=== PATIENT | female | born 1970 | race African-American/Black ===

== ENCOUNTER 2018-09-04 16:29 | Emergency (ER) | payer SELFPAY ==
[~2018-09-04] VITALS: Ht 149.9 cm; Wt 76.7 kg
[2018-09-04 16:35] VITALS: BP 143/81
[2018-09-04] MEDS ORDERED: SULF1TAB24 PO (16:48)
--- NOTE | 2018-09-04 16:49 | PHYS DOC ---
Past Medical History Past Medical History: No Pertinent History (VLAD JONES APRN) Past Surgical History: Hysterectomy (VLAD JONES APRN) Additional Information: 6 cigarettes daily Alcohol Use: Occasionally Drug Use: None (VLAD JONES APRN) Adult General Chief Complaint Chief Complaint: INSECT BITE HPI HPI Patient is a 48 year old female who presents to the ED today complaining of an insect bite to the left medial ankle that she noted today. Patient states she believes she got bit by a spider. She states she felt something bite her but did not see what exactly bit her. She states the last time she had a similar bite she had to be on antibiotics and is requesting the same. Denies any anaphylactic-type reaction symptoms. (VLAD JONES APRN) Review of Systems Review of Systems Constitutional: Denies fever or chills [] Musculoskeletal: Denies back pain or joint pain [] Integument: Insect bite to the left medial ankle Neurologic: Denies headache, focal weakness or sensory changes [] All other systems were reviewed and found to be within normal limits, except as documented in this note. (VLAD JONES APRN) Physical Exam Physical Exam Constitutional: Well developed, well nourished, no acute distress, non-toxic appearance. [] Skin: Left medial ankle with 3 elevated areas consistent of an insect bite. There is surrounding approximately 2 cm of cellulitis to this area. There is no fluctuance to this area. There is warmth or tenderness to the area. Full range of motion to the left ankle and foot. +2 left pedal pulse. Neurovascular exam is intact to the left Back: No tenderness, no CVA tenderness. [] Extremities: No tenderness, no cyanosis, no clubbing, ROM intact, no edema. [] Neurologic: Alert and oriented X 3, normal motor function, normal sensory function, no focal deficits noted. [] Psychologic: Affect normal, judgement normal, mood normal. [] (VLAD JONES APRN) Current Patient Data Vital Signs Vital Signs Date Time Temp Pulse Resp B/P (MAP) Pulse Ox O2 Delivery O2 Flow Rate FiO2 09/04/18 16:35 98.5 105 20 143/81 (101) 96 Room Air 98.5 (LIBBY HUGGINS MD) EKG EKG [] (VLAD JONES APRN) Radiology/Procedures Radiology/Procedures [] (VLAD JONES APRN) Course & Med Decision Making Course & Med Decision Making Pertinent Labs and Imaging studies reviewed. (See chart for details) Patient is in the ED with insect bite to the left medial ankle. She believes it' s a spider bite. She states the last time she had to on antibiotics when she got bit by a spider D/c on Bactrim. Tetanus up-to-date. Encouraged her to take Benadryl as needed. Follow-up with primary care doctor in 1-2 weeks. Provided return precautions and discharged in stable condition. (VLAD JONES APRN) Course & Med Decision Making Staff Physician Addendum: I was working in the ER during the course of this patient's visit. I was available for consultation as needed, but I was not directly involved in the care of this patient. (LIBBY HUGGINS MD) Dragon Disclaimer Dragon Disclaimer This electronic medical record was generated, in whole or in part, using a voice recognition dictation system. (VLAD JONES APRN) Departure Departure Impression: Primary Impression: Insect bite of left lower extremity Disposition: HOME, SELF-CARE Condition: STABLE Patient Instructions: Insect Bite, [id number] Additional Instructions: You were evaluated in the emergency department for an insect bite to the left medial ankle. Keep the area clean and dry. Take the prescribed antibiotics until completed. Please take Benadryl as needed for this bite. Follow-up with your doctor in 1-2 weeks. Come back to the ED if symptoms worsen. Scripts Sulfamethoxazole/Trimethoprim (BACTRIM DS TABLET) 1 Each Tablet 1 TAB PO BID, #20 TAB Prov: VLAD JONES APRN 09/04/18 Problem Qualifiers Primary Impression: Insect bite of left lower extremity Encounter type: initial encounter Qualified Codes: S80.862A - Insect bite ( nonvenomous), left lower leg, initial encounter; W57.XXXA - Bitten or stung by nonvenomous insect and other nonvenomous arthropods, initial encounter VLAD JONES APRN Sep 04, 2018 16:49 LIBBY HUGGINS MD Sep 06, 2018 04:06
== END 2018-09-04 17:03 | disposition home or self-care (01) ==
LOC: ER 16:29
DX: S80.862A Insect bite (nonvenomous), left lower leg, initial encounter (principal); L03.116 Cellulitis of left lower limb; F17.210 Nicotine dependence, cigarettes, uncomplicated; Z90.710 Acquired absence of both cervix and uterus; W57.XXXA Bitten or stung by nonvenomous insect and other nonvenomous arthropods, initial encounter; Y93.89 Activity, other specified; Y92.89 Other specified places as the place of occurrence of the external cause; Y99.8 Other external cause status
CPT/HCPCS: 99283

== ENCOUNTER 2019-01-22 16:25 | Emergency (ER) | payer SELFPAY ==
[~2019-01-22] VITALS: Ht 149.9 cm; Wt 65.8 kg
[~2019-01-22 16:25] MED LIST: SULF1TAB24 PO
[2019-01-22 17:05] VITALS: BP 136/84
[2019-01-22] MEDS ORDERED: FLUORESCEIN OPHTH TEST STRIP. OS ONE (17:15)
[2019-01-22] MEDS ORDERED: TETRACAINE 0.5% OPHTH SOLUTION 4ML BOTTLE. OS ONE (17:15)
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
[2019-01-22] MEDS ORDERED: HYDROcodone/APAP 5/325MG 1 TAB TABLET PO ONE (17:45)
[2019-01-22] MEDS ORDERED: HYDR-2761 PO (17:57)
[2019-01-22] MEDS ORDERED: ERYT1OIN6 LEFTEYE (17:57)
[2019-01-22] MEDS ORDERED: ERYTHROMYCIN 0.5% OPHTH OINTMENT 1GM TUBE. OS ONE (18:00)
== END 2019-01-22 18:12 | disposition home or self-care (01) ==
LOC: ER 16:25
DX: S05.01XA Injury of conjunctiva and corneal abrasion without foreign body, right eye, initial encounter (principal)
CPT/HCPCS: 99284

== ENCOUNTER 2021-07-16 11:26 | Emergency (ER) | payer BC ==
[~2021-07-16] VITALS: Ht 149.9 cm; Wt 67.3 kg
[~2021-07-16 11:26] MED LIST changes: +ERYT1OIN6 LEFTEYE; +HYDR-2761 PO
[2021-07-16] MEDS ORDERED: KETOROLAC 15 MG/ML VIAL. IVP ONE (12:30)
[2021-07-16] MEDS ORDERED: IV NORMAL SALINE 1000ML BAG 1,000 ML IV ONE (12:30)
[2021-07-16] MEDS ORDERED: ONDANSETRON PF 4 MG/2 ML VIAL. IVP ONE (12:30)
[2021-07-16 12:52] LABS: BASO % 1 % (0-3); EOS # 0.1 x10^3/uL (0.0-0.7); EOS % 1 % (0-3); HEMATOCRIT 47.5 % (36.0-47.0); HEMOGLOBIN 15.6 g/dL (12.0-15.5); LYMPH % 31 % (24-48); MEAN CORPUSCULAR HEMOGLOBIN 30 pg (25-35); MEAN CORPUSCULAR HGB CONC 33 g/dL (31-37); MEAN CORPUSCULAR VOLUME 91 fL (79-100); MONO # 0.5 x10^3/uL (0.0-1.1); MONO % 7 % (0-9); NEUT # 3.8 x10^3/uL (1.8-7.7); NEUT % 60 % (31-73); PLATELET COUNT 234 x10^3/uL (140-400); RED BLOOD COUNT 5.22 x10^6/uL (3.50-5.40); RED CELL DISTRIBUTION WIDTH 14.1 % (11.5-14.5); WHITE BLOOD COUNT 6.4 x10^3/uL (4.0-11.0)
[2021-07-16 12:58] LABS: CALCIUM 9.1 mg/dL (8.5-10.1); CREATININE 0.9 mg/dL (0.6-1.0); GFR 79.3; POTASSIUM 4.2 mmol/L (3.5-5.1)
[2021-07-16 13:05] LABS: ALBUMIN 4.2 g/dL (3.4-5.0); ALBUMIN/GLOBULIN RATIO 1.1 (1.0-1.7); TOTAL BILIRUBIN 0.4 mg/dL (0.2-1.0); TOTAL PROTEIN 8.1 g/dL (6.4-8.2)
[2021-07-16 13:08] LABS: BILIRUBIN,URINE NEGATIVE (NEG); CLARITY,URINE CLOUDY; COLOR,URINE STRAW
[2021-07-16 13:09] LABS: NITRITE,URINE NEGATIVE (NEG); PH,URINE 7.5 (<5.0-8.0); PROTEIN,URINE NEGATIVE (NEG-TRACE)
[2021-07-16 13:10] LABS: WBC,URINE OCC /HPF (0-4)
[2021-07-16 13:11] LABS: BACTERIA,URINE MANY /HPF (0-FEW)
[2021-07-16 13:13] LABS: AMORPHOUS SEDIMENT,UR PRESENT /HPF
[2021-07-16] MEDS ORDERED: IOHEXOL 300 MG/ML 100ML VIAL. IV ONE (13:15)
[2021-07-16] MEDS ORDERED: CONTRAST GIVEN. MC PRN (13:15)
--- NOTE | 2021-07-16 13:56 | RAD ---
Exam Date: 07/16/2021 1:[address] ABDOMEN+PELVIS W Indication: Reason: abdominal pain / Spl. Instructions: [id number] 75ML [phone] / History: . TECHNIQUE: CT examination of the abdomen and pelvis was performed following the administration of no nionic intravenous contrast. One or more of the following dose reduction techniques were utilized: *Automated exposure control (AEC) *Adjustment of mA and/or kV according to patient size *Use of iterative reconstruction technique *CT scan done according to ALARA, or ALARA/IMAGE GENTLY FINDINGS: The visualized lung bases are clear. The liver, gallbladder, spleen, pancreas, adrenal glands and kidneys are normal. Urinary bladder is normal in appearance. Diverticulosis coli is seen without bowel obstruction or inflammation. The appendix is normal. No significant atherosclerotic calcifications are seen. No lymphadenopathy or ascites is seen. Degenerative changes are seen in the spine. IMPRESSION: No evidence of acute intra-abdominal pathology. Diverticulosis coli noted without bowel inflammation or obstruction. Electronically signed by: Marcus Marinelli MD (07/16/2021 1:53 PM) [facility]
[2021-07-16] MEDS ORDERED: NITR100C62 PO (14:25)
[2021-07-16] MEDS ORDERED: ONDA4TAB12 PO (14:25)
--- NOTE | 2021-07-16 14:26 | PHYS DOC ---
Past Medical History Past Medical History: No Pertinent History Additional Past Medical Histor: TBI Past Surgical History: Hysterectomy Smoking Status: Current Every Day Smoker Alcohol Use: Occasionally Drug Use: None General Adult EDM: Chief Complaint: FLANK PAIN HPI: HPI: Patient is a 51-year-old female that came in today with right flank right abdominal pain. Patient states that the pain started a couple of days ago and is increasingly gotten worse, she has had 3 bouts of nausea and vomiting over the last 24 hours and has had multiple diarrhea stools over the last 24 hours. Patient denies any gastrointestinal medical diagnoses. Patient states she was supposed to see her primary care physician Dr. Powell today but decided to come to the emergency department because her symptoms were so severe. Patient denies chest pain, shortness of breath, fever or chills, painful urination, AND frequency in urination. Patient states that she has had a complete hysterectomy . Review of Systems: Review of Systems: Constitutional: Denies fever or chills. [] Eyes: Denies change in visual acuity. [] HENT: Denies nasal congestion or sore throat. [] Respiratory: Denies cough or shortness of breath. [] Cardiovascular: Denies chest pain or edema. [] GI: Abdominal pain right sided, nausea, vomiting, diarrhea denies , bloody stools [] : Denies dysuria. [] Musculoskeletal: Denies back pain or joint pain. [] Integument: Denies rash. [] Neurologic: Denies headache, focal weakness or sensory changes. [] Endocrine: Denies polyuria or polydipsia. [] Lymphatic: Denies swollen glands. [] Psychiatric: Anxious and stressed denies depression [] Heart Score: C/O Chest Pain: N/A Risk Factors: Risk Factors: DM, Current or recent (<one month) smoker, HTN, HLP, family history of CAD, obesity. Risk Scores: Score 0 - 3: 2.5% MACE over next 6 weeks - Discharge Home Score 4 - 6: 20.3% MACE over next 6 weeks - Admit for Clinical Observation Score 7 - 10: 72.7% MACE over next 6 weeks - Early Invasive Strategies Current Medications: Current Medications Medications (Trade) Dose Ordered Sig/Grace Start Time Stop Time Status Last Admin Dose Admin Info (CONTRAST GIVEN -- Rx MONITORING) 1 each PRN DAILY PRN 07/16/21 13:15 07/18/21 13:14 Iohexol (Omnipaque 300 Mg/ml) 75 ml 1X ONCE 07/16/21 13:15 07/16/21 13:16 DC 07/16/21 13:26 75 ML Ketorolac Tromethamine (Toradol 15mg Vial) 15 mg 1X ONCE 07/16/21 12:30 07/16/21 12:31 DC 07/16/21 12:43 15 MG Ondansetron HCl (Zofran) 4 mg 1X ONCE 07/16/21 12:30 07/16/21 12:31 DC 07/16/21 12:43 4 MG Sodium Chloride 1,000 ml @ 999 mls/hr 1X ONCE 07/16/21 12:30 07/16/21 13:30 DC 07/16/21 12:44 999 MLS/HR Allergies: Allergies: Allergies Coded Allergies Type Severity Reaction Last Updated Verified No Known Drug Allergies 01/22/19 No Physical Exam: PE: Constitutional: Well developed, well nourished, mild distress, non-toxic appearance. [] HENT: Normocephalic, atraumatic, bilateral external ears normal, oropharynx moist, no oral exudates, nose normal. [] Eyes: PERRLA, EOMI, conjunctiva normal, no discharge. [] Neck: Normal range of motion, no tenderness, supple, no stridor. [] Cardiovascular:Heart rate regular rhythm, no murmur [] Lungs & Thorax: Bilateral breath sounds clear to auscultation [] Abdomen: Bowel sounds normal, soft, tenderness right sided, no masses, no pulsatile masses. [] Skin: Warm, dry, no erythema, no rash. [] Back: No tenderness, right CVA tenderness. [] Extremities: No tenderness, no cyanosis, no clubbing, ROM intact, no edema. [] Neurologic: Alert and oriented X 3, normal motor function, normal sensory function, no focal deficits noted. [] Psychologic: Affect normal, judgement normal, mood anxious. [] Current Patient Data: Labs: Laboratory Tests Test 07/16/21 11:50 07/16/21 12:35 Urine Collection Type Unknown Urine Color Straw Urine Clarity Cloudy Urine pH 7.5 (<5.0-8.0) Urine Specific [place] 1.025 (1.000-1.030) Urine Protein Negative mg/dL (NEG-TRACE) Urine Glucose (UA) 100 mg/dL (NEG) Urine Ketones (Stick) Negative mg/dL (NEG) Urine Blood Moderate (NEG) Urine Nitrite Negative (NEG) Urine Bilirubin Negative (NEG) Urine Urobilinogen Dipstick 1.0 mg/dL (0.2 mg/dL) Urine Leukocyte Esterase Trace (NEG) Urine RBC 3-5 /HPF (0-2) Urine WBC Occ /HPF (0-4) Urine Squamous Epithelial Cells Occ /LPF Urine Amorphous Sediment Present /HPF Urine Bacteria Many /HPF (0-FEW) White Blood Count 6.4 x10^3/uL (4.0-11.0) Red Blood Count 5.22 x10^6/uL (3.50-5.40) Hemoglobin 15.6 g/dL (12.0-15.5) H Hematocrit 47.5 % (36.0-47.0) H Mean Corpuscular Volume 91 fL (79-100) Mean Corpuscular Hemoglobin 30 pg (25-35) Mean Corpuscular Hemoglobin Concent 33 g/dL (31-37) Red Cell Distribution Width 14.1 % (11.5-14.5) Platelet Count 234 x10^3/uL (140-400) Neutrophils (%) (Auto) 60 % (31-73) Lymphocytes (%) (Auto) 31 % (24-48) Monocytes (%) (Auto) 7 % (0-9) Eosinophils (%) (Auto) 1 % (0-3) Basophils (%) (Auto) 1 % (0-3) Neutrophils # (Auto) 3.8 x10^3/uL (1.8-7.7) Lymphocytes # (Auto) 2.0 x10^3/uL (1.0-4.8) Monocytes # (Auto) 0.5 x10^3/uL (0.0-1.1) Eosinophils # (Auto) 0.1 x10^3/uL (0.0-0.7) Basophils # (Auto) 0.0 x10^3/uL (0.0-0.2) Sodium Level 145 mmol/L (136-145) Potassium Level 4.2 mmol/L (3.5-5.1) Chloride Level 106 mmol/L (98-107) Carbon Dioxide Level 27 mmol/L (21-32) Anion Gap 12 (6-14) Blood Urea Nitrogen 15 mg/dL (7-20) Creatinine 0.9 mg/dL (0.6-1.0) Estimated GFR (Cockcroft-Gault) 79.3 BUN/Creatinine Ratio 17 (6-20) Glucose Level 98 mg/dL (70-99) Calcium Level 9.1 mg/dL (8.5-10.1) Total Bilirubin 0.4 mg/dL (0.2-1.0) Aspartate Amino Transferase (AST) 15 U/L (15-37) Alanine Aminotransferase (ALT) 33 U/L (14-59) Alkaline Phosphatase 105 U/L (46-116) Total Protein 8.1 g/dL (6.4-8.2) Albumin 4.2 g/dL (3.4-5.0) Albumin/Globulin Ratio 1.1 (1.0-1.7) Lipase 269 U/L (73-393) Laboratory Tests 07/16/21 12:35 Laboratory Tests 07/16/21 12:35 Vital Signs: Vital Signs Date Time Temp Pulse Resp B/P (MAP) Pulse Ox O2 Delivery O2 Flow Rate FiO2 07/16/21 12:45 98.1 65 18 136/78 (97) 98 Room Air 98.1 EKG: EKG: [] Radiology/Procedures: Radiology/Procedures: REASON: abdominal pain PROCEDURE: CT ABD PELV W/ IV CONTRST ONLY Exam Date: 07/16/2021 1:[address] ABDOMEN+PELVIS W Indication: Reason: abdominal pain / Spl. Instructions: [id number] [id number] / History: . TECHNIQUE: CT examination of the abdomen and pelvis was performed following the administration of nonionic intravenous contrast. One or more of the following dose reduction techniques were utilized: *Automated exposure control (AEC) *Adjustment of mA and/or kV according to patient size *Use of iterative reconstruction technique *CT scan done according to ALARA, or ALARA/IMAGE GENTLY FINDINGS: The visualized lung bases are clear. The liver, gallbladder, spleen, pancreas, adrenal glands and kidneys are normal. Urinary bladder is normal in appearance. Diverticulosis coli is seen without bowel obstruction or inflammation. The appendix is normal. No significant atherosclerotic calcifications are seen. No lymphadenopathy or ascites is seen. Degenerative changes are seen in the spine. IMPRESSION: No evidence of acute intra-abdominal pathology. Diverticulosis coli noted without bowel inflammation or obstruction. Electronically signed by: Marcus Marinelli MD (07/16/2021 1:53 PM) [facility] Course & Med Decision Making: Course & Med Decision Making Pertinent Labs and Imaging studies reviewed. (See chart for details) Did review radiological and laboratory results with patient, did inform her that we found no acute cause of why she is having right-sided abdominal pain nausea and vomiting and diarrhea. Patient denies dysuria, did inform her that she probably needs to follow-up with her primary care physician so that they may do further evaluation of this abdominal pain. We will treat patient with Macrobid for her urinary tract infection. Dragon Disclaimer: Dragon Disclaimer: This electronic medical record was generated, in whole or in part, using a voice recognition dictation system. Departure Departure Impression: Primary Impression: Abdominal pain Qualified Codes: R10.31 - Right lower quadrant pain Additional Impression: UTI (urinary tract infection) Qualified Codes: N30.01 - Acute cystitis with hematuria Disposition: HOME / SELF CARE / HOMELESS Condition: STABLE Referrals: CRISTIAN POWELL MD (PCP) Patient Instructions: Abdominal Pain, Clear Liquid Diet, Urinary Tract Infection Additional Instructions: Macrobid take 1 tablet twice daily for 7 full days for urinary tract infection Zofran take one tablet every 8 hours as needed nausea Follow-up with your primary care physician for further evaluation of your abd ominal pain Make sure you are drinking plenty of fluids and stay well-hydrated If you are nauseated I would stick with clear liquids for the next 12 to 24 hours. Scripts Nitrofurantoin Monohyd/M-Cryst (MACROBID 100 MG CAPSULE) 100 Mg Capsule 1 CAP PO BID for 7 Days, #14 CAP 0 Refills Prov: JAQUAN ROSE PHOTO CHECKER AND ASSEMBLER 07/16/21 Ondansetron (ONDANSETRON ODT) 4 Mg Tab.rapdis 1 TAB PO PRN Q8HRS PRN for NAUSEA, #16 TAB Prov: JAQUAN ROSE PHOTO CHECKER AND ASSEMBLER 07/16/21 JAQUAN ROSE PHOTO CHECKER AND ASSEMBLER Jul 16, 2021 14:26
[2021-07-16 14:54] VITALS: BP 124/63
== END 2021-07-16 14:58 | disposition home or self-care (01) ==
LOC: ER 11:26
DX: N30.01 Acute cystitis with hematuria (principal); F17.200 Nicotine dependence, unspecified, uncomplicated; Z90.710 Acquired absence of both cervix and uterus; Z87.820 Personal history of traumatic brain injury
CPT/HCPCS: 36415; 74177; 80053; 81001; 83690; 85025; 87086; 96361; 96374; 96375; 99285; J1885; J2405; J7030; Q9967

== ENCOUNTER 2021-08-10 08:44 | Emergency (ER) | payer BC ==
[~2021-08-10] VITALS: Ht 149.9 cm; Wt 74.4 kg
[~2021-08-10 08:44] MED LIST changes: +NITR100C62 PO; +ONDA4TAB12 PO
--- NOTE | 2021-08-10 09:21 | PHYS DOC ---
Past Medical History Past Medical History: No Pertinent History Additional Past Medical Histor: TBI Past Surgical History: Hysterectomy Smoking Status: Current Every Day Smoker Alcohol Use: Occasionally Drug Use: Marijuana General Adult EDM: Chief Complaint: CHEST PAIN HPI: HPI: Patient is a 51-year-old female that presents today with cough, body aches, and low-grade fever for 1 week. Patient states symptoms have been ongoing for 1 week, she was told today by her employment that she needed to get checked out because they were concerned that she might have COVID-19. Patient states she has been taking hhbw-vqj-pvvhalc medications such as Robitussin, TheraFlu, Tyle nol, and allergy medicines. Patient states that she had a fever couple days ago which was 101.1, she said she took Tylenol and the fever was improved. Patient does state that she has had the Covid vaccines with booster and her influenza vaccine as well. Review of Systems: Review of Systems: Constitutional: fever or chills. [] Eyes: Denies change in visual acuity. [] HENT: nasal congestion denies sore throat. [] Respiratory: cough denies shortness of breath. [] Cardiovascular: Denies chest pain or edema. [] GI: Denies abdominal pain, nausea, vomiting, bloody stools or diarrhea. [] : Denies dysuria. [] Musculoskeletal: Body aches denies back pain or joint pain. [] Integument: Denies rash. [] Neurologic: Denies headache, focal weakness or sensory changes. [] Endocrine: Denies polyuria or polydipsia. [] Lymphatic: Denies swollen glands. [] Psychiatric: Denies depression or anxiety. [] Heart Score: C/O Chest Pain: No Risk Factors: Risk Factors: DM, Current or recent (<one month) smoker, HTN, HLP, family his tory of CAD, obesity. Risk Scores: Score 0 - 3: 2.5% MACE over next 6 weeks - Discharge Home Score 4 - 6: 20.3% MACE over next 6 weeks - Admit for Clinical Observation Score 7 - 10: 72.7% MACE over next 6 weeks - Early Invasive Strategies Allergies: Allergies: Allergies Coded Allergies Type Severity Reaction Last Updated Verified No Known Drug Allergies 08/10/21 No Physical Exam: PE: Constitutional: Well developed, well nourished, no acute distress, non-toxic appearance. [] HENT: Normocephalic, atraumatic, bilateral external ears normal, oropharynx moist, no oral exudates, nose normal. [] Eyes: PERRLA, EOMI, conjunctiva normal, no discharge. [] Neck: Normal range of motion, no tenderness, supple, no stridor. [] Cardiovascular:Heart rate regular rhythm, no murmur [] Lungs & Thorax: Bilateral breath sounds clear to auscultation, cough noted Abdomen: Bowel sounds normal, soft, no tenderness, no masses, no pulsatile masses. [] Skin: Warm, dry, no erythema, no rash. [] Back: No tenderness, no CVA tenderness. [] Extremities: No tenderness, no cyanosis, no clubbing, ROM intact, no edema. [] Neurologic: Alert and oriented X 3, normal motor function, normal sensory function, no focal deficits noted. [] Psychologic: Affect normal, judgement normal, mood normal. [] Current Patient Data: Labs: Laboratory Tests Test 08/10/21 09:21 Influenza Type A Antigen Negative Influenza Type B Antigen Negative SARS-CoV-2 Antigen (Rapid) Negative Vital Signs: Vital Signs Date Time Temp Pulse Resp B/P (MAP) Pulse Ox O2 Delivery O2 Flow Rate FiO2 08/10/21 09:29 77 22 144/68 (93) 99 Room Air 08/10/21 09:15 68 22 156/76 (102) 99 Room Air 08/10/21 08:56 98.7 65 22 168/77 (107) 100 Room Air 98.7 08/10/21 08:51 65 22 168/77 (107) 99 Room Air Vital Signs Date Time Temp Pulse Resp B/P (MAP) Pulse Ox O2 Delivery O2 Flow Rate FiO2 08/10/21 08:56 98.7 65 22 168/77 (107) 100 Room Air 98.7 EKG: EKG: [] Radiology/Procedures: Radiology/Procedures: [REASON: cough for one week PROCEDURE: CHEST PA & LATERAL XR CHEST 2V History: Reason: cough for one week / Spl. Instructions: / History: Comparison: None. Findings: No consolidation or pleural effusion. Normal heart size. No pneumothorax. Impression: 1. No acute cardiopulmonary process. Electronically signed by: Benjy Johnson DO (08/10/2021 9:59 AM) [id number] ] Course & Med Decision Making: Course & Med Decision Making Pertinent Labs and Imaging studies reviewed. (See chart for details) Reviewed radiological and laboratory results with patient did inform her there was no acute processes noted on her chest x-ray and her labs were negative for rapid Covid and influenza. Did inform her that the PCR testing for the COVID-19 is the most sensitive the test and we just do not have that here she would need to follow-up with her primary care physician or with the health department for that specific test. Did inform her that her symptoms been going on for greater than 10 days that I will treat her with antibiotics due to her smoking history and an inhaler. Patient is to follow-up with her primary care physician in the 5 to 7 days of her symptoms not improved. Mary Disclaimer: Mary Disclaimer: This electronic medical record was generated, in whole or in part, using a voice recognition dictation system. Departure Departure Impression: Primary Impression: Bronchitis Disposition: 01 HOME / SELF CARE / HOMELESS Condition: STABLE Referrals: CRISTIAN POWELL MD (PCP) Patient Instructions: Acute Bronchitis, Smoking Cessation, Tips For Success Additional Instructions: Stop smoking Augmentin 1 tablet twice daily for 7 days Albuterol inhaler 2 puffs every 4 hours as needed for coughing. No more than 6 doses in a 24-hour period Tylenol and/or ibuprofen as needed for fever and pain Tiag-kwr-utctmgu antihistamine such as Claritin Zyrtec or Jennifer daily to help decrease inflammation in the upper airways area Wght-tkb-outratm Flonase nasal spray 2 sprays each side of the nose twice daily Continue with your jdwf-ddw-oahvozm cough suppressant medications Cool-mist humidifier Follow-up with your primary care physician in 5 to 7 days if her symptoms are not improved Return to the emergency department for increased shortness of breath, fever not relieved by Tylenol and/or ibuprofen, or bluing of your lips or face. Scripts Amoxicillin/Potassium Clav (AMOX TR-K CLV 875-125 MG TAB) 1 Each Tablet 1 TAB PO BID for 7 Days, #14 TAB 0 Refills Prov: JAQUAN ROSE HEALTH EDITOR 08/10/21 Albuterol Sulfate (Ventolin Hfa) 8 Gm Hfa.aer.ad 2 PUFF INH PRN Q4HRS PRN for COUGH, #1 EACH Prov: JAQUAN ROSE APRN 08/10/21 JAQUAN ROSE APRN Aug 10, 2021 09:21
[2021-08-10 09:29] VITALS: BP 144/68
[2021-08-10 09:52] LABS: INFLUENZA A PATIENT NEGATIVE (NEGATIVE); INFLUENZA B PATIENT NEGATIVE (NEGATIVE)
--- NOTE | 2021-08-10 10:02 | RAD ---
XR CHEST 2V History: Reason: cough for one week / Spl. Instructions: / History: Comparison: None. Findings: No consolidation or pleural effusion. Normal heart size. No pneumothorax. Impression: 1. No acute cardiopulmonary process. Electronically signed by: Benjy Johnson DO (08/10/2021 9:59 AM) [id number]
[2021-08-10] MEDS ORDERED: AMOX1TAB11 PO (10:26)
[2021-08-10] MEDS ORDERED: ALBU8HFA INH (10:26)
== END 2021-08-10 10:39 | disposition home or self-care (01) ==
LOC: ER 08:44
DX: J40 Bronchitis, not specified as acute or chronic (principal); Z20.822 Contact with and (suspected) exposure to COVID-19; Z90.710 Acquired absence of both cervix and uterus; Z87.820 Personal history of traumatic brain injury; F17.200 Nicotine dependence, unspecified, uncomplicated
CPT/HCPCS: 71046; 87428; 99284